=== PATIENT | male | born 1955 | race African-American/Black ===

== ENCOUNTER 2018-08-27 12:13 | Inpatient (IN) | payer OTHER, MEDICAID ==
[~2018-08-27] VITALS: Ht 188 cm; Wt 119.7 kg
[2018-08-27 14:34] LABS: CALCIUM 8.1 mg/dL (8.5-10.1); CARBON DIOXIDE 19.7 mmol/L (21-32); CREATININE SERUM 3.7 mg/dL (0.7-1.3); POTASSIUM SERUM 4.9 mmol/L (3.5-5.1)
[2018-08-27 14:39] LABS: ALBUMIN 3.6 g/dL (3.4-5.0); BILIRUBIN TOTAL 0.3 mg/dL (0.20-1.00)
[2018-08-27 14:46] LABS: BASOPHIL % 0.2 % (0-2); PLATELET COUNT 191 x10^3mcL (130-400); RED CELL DISTRIBUTION WIDTH 17.2 % (11.5-14.5)
[2018-08-27 16:03] LABS: AMPHETAMINE QUAL UR NONE DETECTED (See below)
[2018-08-27 16:33] LABS: UA SPECIFIC GRAVITY 1.015 (1.005-1.035); microscopic required? YES; urine erythrocyte 1+ (NEGATIVE)
[2018-08-27 16:41] LABS: MAGNESIUM 2.1 mg/dL (1.8-2.4); PHOSPHOROUS 3.7 mg/dL (2.5-4.9)
[2018-08-27 17:20] VITALS: BP 142/65
[2018-08-27 17:31] VITALS: Ht 188 cm; Wt 119.7 kg
[2018-08-27 18:13] VITALS: BP 142/65
[2018-08-27 20:34] VITALS: BP 146/83
[2018-08-28 05:25] VITALS: BP 152/83
[2018-08-28 06:20] LABS: PLATELET COUNT 177 x10^3mcL (130-400)
[2018-08-28] MEDS ORDERED: LASIX80 MG PO (06:33)
[2018-08-28 06:42] LABS: RED CELL DISTRIBUTION WIDTH 16.3 % (11.5-14.5)
[2018-08-28 07:09] LABS: CALCIUM 8.2 mg/dL (8.5-10.1); CARBON DIOXIDE 20.2 mmol/L (21-32); CREATININE SERUM 3.9 mg/dL (0.7-1.3)
[2018-08-28 07:25] LABS: POTASSIUM SERUM 5.9 mmol/L (3.5-5.1)
[2018-08-28 08:09] VITALS: BP 142/75
[2018-08-28 10:36] LABS: BAND NEUTROPHIL 0 % (0-10); BASOPHIL 0 % (0-2); MONOCYTE 12 % (0-7); SEGMENTED NEUTROPHILS 85 % (37-75)
[2018-08-28 10:37] LABS: PLATELET MORPHOLOGY PLATELETS DECREASED; rbc morphology (normal/abnorm) ABNORMAL (NORMAL)
[2018-08-28 11:52] VITALS: BP 126/60
[2018-08-28 13:18] VITALS: BP 126/60
== END 2018-08-28 14:56 | disposition home or self-care (01) | DRG 682 ==
LOC: ED 12:13 → DU 15:50 → EDBEDREQ 16:06 → DU 17:05
PROVIDERS: Emergency Medicine; ADMIT Internal Medicine
DX: I12.0 Hypertensive chronic kidney disease with stage 5 chronic kidney disease or end stage renal disease (principal); G93.41 Metabolic encephalopathy; N17.0 Acute kidney failure with tubular necrosis; J81.1 Chronic pulmonary edema; N18.5 Chronic kidney disease, stage 5; E87.2 Acidosis; E87.5 Hyperkalemia; E83.51 Hypocalcemia; R73.03 Prediabetes; D63.1 Anemia in chronic kidney disease; R74.0 Nonspecific elevation of levels of transaminase and lactic acid dehydrogenase [LDH]; F17.210 Nicotine dependence, cigarettes, uncomplicated; Z68.34 Body mass index [BMI] 34.0-34.9, adult; Z99.2 Dependence on renal dialysis; Z91.15 Patient's noncompliance with renal dialysis; Z53.29 Procedure and treatment not carried out because of patient's decision for other reasons
CPT/HCPCS: 83880; 99406; J1940; J2270; J2405; J7512; J7613; Q0092

== ENCOUNTER 2019-06-21 21:15 | Inpatient (IN) | payer OTHER, MEDICAID ==
[~2019-06-21] VITALS: Ht 188 cm; Wt 115.2 kg
[~2019-06-21 21:15] MED LIST: LASIX80 MG PO
[2019-06-21 21:21] VITALS: Ht 188 cm; Wt 115.2 kg
[2019-06-21 21:48] LABS: BASOPHIL % 0.5 % (0-2); PLATELET COUNT 184 x10^3mcL (130-400)
[2019-06-21 21:52] LABS: RED CELL DISTRIBUTION WIDTH 14.7 % (11.5-14.5)
[2019-06-21 22:01] LABS: ALBUMIN 3.5 g/dL (3.4-5.0); BILIRUBIN TOTAL 0.23 mg/dL (0.20-1.00); CALCIUM 8.5 mg/dL (8.5-10.1); CARBON DIOXIDE 23.8 mmol/L (21-32); POTASSIUM SERUM 4.6 mmol/L (3.5-5.1)
[2019-06-21 22:03] LABS: TOTAL PROTEIN, SERUM 9.3 g/dL (6.4-8.2)
[2019-06-21 22:04] LABS: CREATININE SERUM 5.2 mg/dL (0.7-1.3)
[2019-06-21] MEDS ORDERED: AMLODIPINE BESYL5 M2 PO (23:02)
[2019-06-21] MEDS ORDERED: ATI1 PO (23:03)
[2019-06-21] MEDS ORDERED: LOPRESSOR50 M1 PO (23:03)
[2019-06-21] MEDS ORDERED: TEMAZEPAM15 MG PO (23:04)
[2019-06-21] MEDS ORDERED: PANTOPRAZOLE SO40 M2 PO (23:05)
[2019-06-21] MEDS ORDERED: TRAZODONE150 M1 PO (23:06)
[2019-06-21] MEDS ORDERED: HORIZANT300 MG PO (23:11)
[2019-06-21 23:55] LABS: MAGNESIUM 2.2 mg/dL (1.8-2.4); PHOSPHOROUS 4.6 mg/dL (2.5-4.9)
[2019-06-22 00:33] VITALS: BP 149/75
[2019-06-22 00:45] LABS: microscopic required? YES; urine erythrocyte 2+ (NEGATIVE)
[2019-06-22 04:42] VITALS: BP 128/72
[2019-06-22 07:10] LABS: BASOPHIL % 0.7 % (0-2); PLATELET COUNT 146 x10^3mcL (130-400)
[2019-06-22 07:16] LABS: RED CELL DISTRIBUTION WIDTH 14.7 % (11.5-14.5)
[2019-06-22 07:34] LABS: CARBON DIOXIDE 21.8 mmol/L (21-32); MAGNESIUM 2.1 mg/dL (1.8-2.4); PHOSPHOROUS 4.6 mg/dL (2.5-4.9); POTASSIUM SERUM 4.3 mmol/L (3.5-5.1)
[2019-06-22 08:34] LABS: BILIRUBIN DIRECT 0.07 mg/dL (0.0-0.2); BILIRUBIN TOTAL 0.2 mg/dL (0.20-1.00)
[2019-06-22 08:57] LABS: ALBUMIN 3.1 g/dL (3.4-5.0); TOTAL PROTEIN, SERUM 8.3 g/dL (6.4-8.2)
[2019-06-22 09:12] VITALS: BP 135/77; BP 170/58
[2019-06-22 12:33] VITALS: BP 137/78
[2019-06-22 17:01] VITALS: BP 130/79
[2019-06-22 20:19] VITALS: BP 143/83
[2019-06-23 05:31] VITALS: BP 127/62
[2019-06-23 06:58] LABS: CALCIUM 8.2 mg/dL (8.5-10.1); PHOSPHOROUS 4.9 mg/dL (2.5-4.9); POTASSIUM SERUM 4.2 mmol/L (3.5-5.1)
[2019-06-23 07:06] LABS: ALBUMIN 3.1 g/dL (3.4-5.0)
[2019-06-23 07:07] LABS: CREATININE SERUM 4.9 mg/dL (0.7-1.3)
[2019-06-23 08:31] VITALS: BP 118/55
[2019-06-23 13:50] VITALS: BP 152/68
[2019-06-23 18:14] VITALS: BP 158/87
[2019-06-23 19:44] VITALS: BP 142/88
[2019-06-24 05:40] VITALS: BP 135/79
[2019-06-24 07:42] LABS: BILIRUBIN DIRECT 0.06 mg/dL (0.0-0.2); BILIRUBIN TOTAL 0.2 mg/dL (0.20-1.00); CALCIUM 8.5 mg/dL (8.5-10.1); CARBON DIOXIDE 18.5 mmol/L (21-32); PHOSPHOROUS 4.4 mg/dL (2.5-4.9); POTASSIUM SERUM 4.2 mmol/L (3.5-5.1)
[2019-06-24 07:51] LABS: CREATININE SERUM 4.6 mg/dL (0.7-1.3); TOTAL PROTEIN, SERUM 8.4 g/dL (6.4-8.2)
[2019-06-24 08:34] VITALS: BP 163/84
[2019-06-24 12:46] VITALS: BP 133/60
[2019-06-24 16:47] VITALS: BP 156/72
[2019-06-24 21:45] VITALS: BP 140/67
[2019-06-25 06:19] VITALS: BP 137/89
[2019-06-25 07:31] LABS: CALCIUM 8.3 mg/dL (8.5-10.1); CARBON DIOXIDE 21.4 mmol/L (21-32); PHOSPHOROUS 4.6 mg/dL (2.5-4.9); POTASSIUM SERUM 4.6 mmol/L (3.5-5.1)
[2019-06-25 07:33] LABS: CREATININE SERUM 4.7 mg/dL (0.7-1.3)
[2019-06-25 08:24] VITALS: BP 138/84
[2019-06-25 12:20] VITALS: BP 141/67
[2019-06-25 13:27] VITALS: BP 141/67
== END 2019-06-25 15:22 | disposition home or self-care (01) | DRG 682 ==
LOC: ED 21:15 → DU 23:14 → MU 23:14 → DU 06-22 00:25 → MU 06-23 19:00
PROVIDERS: Emergency Medicine; ADMIT Internal Medicine
PROC: 5A1D70Z Performance of Urinary Filtration, Intermittent, Less than 6 Hours Per Day (ICD-10-PCS; principal; 2019-06-24)
DX: I13.11 Hypertensive heart and chronic kidney disease without heart failure, with stage 5 chronic kidney disease, or end stage renal disease (principal); J96.00 Acute respiratory failure, unspecified whether with hypoxia or hypercapnia; N18.5 Chronic kidney disease, stage 5; N39.0 Urinary tract infection, site not specified; J81.1 Chronic pulmonary edema; E87.70 Fluid overload, unspecified; D64.9 Anemia, unspecified; F32.9 Major depressive disorder, single episode, unspecified; Z91.19 Patient's noncompliance with other medical treatment and regimen; Z53.29 Procedure and treatment not carried out because of patient's decision for other reasons; Z68.33 Body mass index [BMI] 33.0-33.9, adult
CPT/HCPCS: 83880; G0378; J0696; J1940; J2270; J7050; J7060; Q0092; Q9967

== ENCOUNTER 2019-07-12 19:26 | Inpatient (IN) | payer OTHER, MEDICAID ==
[~2019-07-12] VITALS: Ht 182.9 cm; Wt 115.7 kg
[~2019-07-12 19:26] MED LIST changes: +AMLODIPINE BESYL5 M2 PO; +ATI1 PO; +HORIZANT300 MG PO; +LOPRESSOR50 M1 PO; +PANTOPRAZOLE SO40 M2 PO; +TEMAZEPAM15 MG PO; +TRAZODONE150 M1 PO
[2019-07-12 19:51] VITALS: Ht 182.9 cm; Wt 115.7 kg
[2019-07-12 21:18] LABS: BASOPHIL % 0.4 % (0-2); PLATELET COUNT 170 x10^3mcL (130-400)
[2019-07-12 21:19] LABS: RED CELL DISTRIBUTION WIDTH 14.7 % (11.5-14.5)
[2019-07-12 21:34] LABS: ALBUMIN 3.6 g/dL (3.4-5.0); BILIRUBIN TOTAL 0.2 mg/dL (0.20-1.00); CALCIUM 8.2 mg/dL (8.5-10.1); MAGNESIUM 2.3 mg/dL (1.8-2.4)
[2019-07-12 21:37] LABS: TOTAL PROTEIN, SERUM 9.2 g/dL (6.4-8.2)
[2019-07-12 21:38] LABS: CREATININE SERUM 6.3 mg/dL (0.7-1.3)
[2019-07-12 23:17] LABS: microscopic required? YES; urine erythrocyte 2+ (NEGATIVE)
[2019-07-13 02:21] LABS: T3 TOTAL 1.1 ng/mL
[2019-07-13 02:46] VITALS: BP 132/75
[2019-07-13 03:59] LABS: FREE T4 0.98 ng/dL (0.76-1.46); T4(THYROXINE) 7.5 ug/dL (4.7-13.3)
[2019-07-13 04:00] LABS: PHOSPHOROUS 4.1 mg/dL (2.5-4.9)
[2019-07-13 04:01] LABS: CHOLESTEROL/HDL RATIO 5.4
[2019-07-13 05:40] VITALS: BP 139/74
[2019-07-13 06:33] LABS: BASOPHIL % 0.7 % (0-2); PLATELET COUNT 172 x10^3mcL (130-400); RED CELL DISTRIBUTION WIDTH 14.7 % (11.5-14.5)
[2019-07-13 06:49] LABS: CALCIUM 8.4 mg/dL (8.5-10.1); CARBON DIOXIDE 26.9 mmol/L (21-32); MAGNESIUM 2.3 mg/dL (1.8-2.4); PHOSPHOROUS 4.8 mg/dL (2.5-4.9); POTASSIUM SERUM 4.5 mmol/L (3.5-5.1)
[2019-07-13 07:18] LABS: CREATININE SERUM 5.9 mg/dL (0.7-1.3)
[2019-07-13 09:25] VITALS: BP 123/53
[2019-07-13 12:51] VITALS: BP 143/65
[2019-07-13 17:30] VITALS: BP 133/70
[2019-07-13 22:16] VITALS: BP 146/78
[2019-07-14 05:58] VITALS: BP 134/72
[2019-07-14 06:40] LABS: BASOPHIL % 0.7 % (0-2); PLATELET COUNT 156 x10^3mcL (130-400)
[2019-07-14 06:44] LABS: RED CELL DISTRIBUTION WIDTH 14.7 % (11.5-14.5)
[2019-07-14 07:13] LABS: CALCIUM 8.2 mg/dL (8.5-10.1); CARBON DIOXIDE 22.5 mmol/L (21-32); POTASSIUM SERUM 4.6 mmol/L (3.5-5.1)
[2019-07-14 07:21] LABS: CREATININE SERUM 5.6 mg/dL (0.7-1.3)
[2019-07-14 08:45] VITALS: BP 130/79
[2019-07-14 13:08] VITALS: BP 143/77
[2019-07-14 17:02] VITALS: BP 149/83
[2019-07-14 19:56] VITALS: BP 158/81
[2019-07-15 05:32] VITALS: BP 138/77
[2019-07-15 07:51] LABS: CALCIUM 8.3 mg/dL (8.5-10.1); CARBON DIOXIDE 22.3 mmol/L (21-32); POTASSIUM SERUM 4.6 mmol/L (3.5-5.1)
[2019-07-15 07:56] LABS: CREATININE SERUM 4.8 mg/dL (0.7-1.3)
[2019-07-15 08:25] VITALS: BP 139/69
[2019-07-15 09:14] LABS: AMPHETAMINE QUAL UR NONE DETECTED (See below)
[2019-07-15 09:38] LABS: BASOPHIL % 0.8 % (0-2); PLATELET COUNT 161 x10^3mcL (130-400); RED CELL DISTRIBUTION WIDTH 13.3 % (11.5-14.5)
[2019-07-15 12:25] VITALS: BP 161/80
[2019-07-15 17:08] VITALS: BP 175/89
[2019-07-15 20:41] VITALS: BP 168/85
[2019-07-15 22:11] VITALS: BP 158/75
[2019-07-16 05:36] VITALS: BP 141/64
[2019-07-16 06:37] LABS: BASOPHIL % 0.4 % (0-2); PLATELET COUNT 163 x10^3mcL (130-400)
[2019-07-16 06:57] LABS: RED CELL DISTRIBUTION WIDTH 14.8 % (11.5-14.5)
[2019-07-16 07:03] LABS: CALCIUM 8.3 mg/dL (8.5-10.1); CARBON DIOXIDE 20.9 mmol/L (21-32); POTASSIUM SERUM 4.6 mmol/L (3.5-5.1)
[2019-07-16 07:07] LABS: CREATININE SERUM 4.7 mg/dL (0.7-1.3)
[2019-07-16 07:54] VITALS: BP 147/90
[2019-07-16] MEDS ORDERED: MACROBID100 MG PO (09:54)
[2019-07-16 11:46] VITALS: BP 147/90
== END 2019-07-16 12:24 | disposition home or self-care (01) | DRG 682 ==
LOC: ED 19:26 → DU 07-13 01:12 → MU 07-15 12:50
PROVIDERS: Emergency Medicine; ADMIT Internal Medicine
DX: I12.0 Hypertensive chronic kidney disease with stage 5 chronic kidney disease or end stage renal disease (principal); N17.0 Acute kidney failure with tubular necrosis; N39.0 Urinary tract infection, site not specified; N18.5 Chronic kidney disease, stage 5; D63.1 Anemia in chronic kidney disease; K21.9 Gastro-esophageal reflux disease without esophagitis; J45.909 Unspecified asthma, uncomplicated; F32.9 Major depressive disorder, single episode, unspecified; R74.0 Nonspecific elevation of levels of transaminase and lactic acid dehydrogenase [LDH]; B95.2 Enterococcus as the cause of diseases classified elsewhere; B18.2 Chronic viral hepatitis C; F41.9 Anxiety disorder, unspecified; Z86.19 Personal history of other infectious and parasitic diseases; Z93.6 Other artificial openings of urinary tract status; Z79.899 Other long term (current) drug therapy; Z87.891 Personal history of nicotine dependence; Z87.440 Personal history of urinary (tract) infections; Z87.442 Personal history of urinary calculi
CPT/HCPCS: 83880; 84439; G0378; J0360; J0696; J1885; J2405; J7030; J7040; J7060; Q0092